=== PATIENT | male | born 1955 | race American Indian/Alaskan Native ===

== ENCOUNTER 2016-09-08 11:52 | Inpatient (IN) | payer BC, OTHER ==
--- NOTE | 2016-09-08 13:09 | C.PDOC ---
History Of Present Illness 61 yo male, hx of htn, dm, presents with "dizziness" x 1 week. pt states difficulty ambulating. pt states also "trouble moving his bowels". and mild abdominal pain pt states no fevers, no cough, no cp, no sob. no n/v/d. Time Seen by Provider: 09/08/16 13:01 Chief Complaint (Nursing): Abdominal Pain Past Medical History Reviewed: Historical Data, Nursing Documentation, Vital Signs Vital Signs: Last Vital Signs Temp 98.1 F 09/08/16 21:04 Pulse 71 09/08/16 21:04 Resp 20 09/08/16 21:04 BP 151/92 H 09/08/16 21:04 Pulse Ox 100 09/08/16 23:40 - Medical History PMH: Diabetes, HTN - [facility] Procedures INJECT INTO THORAX CAVIT (07/21/12) INSERT INDWELLING CATH (07/21/12) INSERT INTERCOSTAL CATH (07/21/12) NON-OP REPLACEMENT NEC (07/21/12) THORACOSCOPIC DRAINAGE OF PLEURAL CAVITY (07/21/12) THORACOSCOPIC EXCISION OF LESION OR TISSUE OF LUNG (07/21/12) Family History: States: Unknown Family Hx - Social History Hx Tobacco Use: No Hx Alcohol Use: No Hx Substance Use: No Review Of Systems Except As Marked, All Systems Reviewed And Found Negative. Constitutional: Positive for: Weakness Gastrointestinal: Positive for: Constipation Physical Exam - Physical Exam Appears: Well, No Acute Distress Skin: Normal Color, Warm, Dry Eye(s): bilateral: Normal Inspection, PERRL, EOMI Nose: Normal Throat: Normal Neck: Normal Cardiovascular: Rhythm Regular Respiratory: Normal Breath Sounds Gastrointestinal/Abdominal: Normal Exam, Soft, No Tenderness, No Guarding, No Rebound Back: Normal Inspection Extremity: Normal ROM Neurological/Psych: Oriented x3, Normal Speech, Normal Cognition, Normal Cranial Nerves, No Cerebellar Signs, Normal Motor, Normal Sensation ED Course And Treatment - Laboratory Results Result Diagrams: 09/08/16 13:58 09/08/16 13:58 O2 Sat by Pulse Oximetry: 100 NIHSS Stroke Scale - Date/Time Evaluation Performed Date Performed: 09/08/16 Time Performed: 16:05 - How Severe is the Stoke Level of Consciousness: 0=Alert LOC to Questions: 0=Both comments correct LOC to commands: 0=Obeys both correctly Best Gaze: 0=Normal Visual: 0=No visual loss Facial: 0=Normal Motor Arm - Left: 0=No drift Motor Arm - Right: 0=No drift Motor Leg - Left: 0=No drift Motor Leg - Right: 0=No drift Limb Ataxia: 0=Absent Sensory: 0=Normal Best Language: 0=No aphasia Dysarthia: 0=Normal articulation Extinction & Inattention (Neglect): 0=Normal, no object Score: 0 Severity Of Stroke: 0= No Stroke rTPA Inclusion/Exclusion - Refusal of Treatment Patient Refused Treatment: No - Inclusion Criteria for Altepase Patient is 18 years or Older: Yes Clinical DX Ischemic Stroke Cause Neurological Deficit: No Time of Onset Established Less Than 270 Mins Before TX Begin: No Risk/Benefit Discussed With Patient/Family Member Present: Yes Medical Decision Making Medical Decision Making: r/o cva/abdominal pathology labs imagoiing pending- ekg nsr [address] t wave changes normal intervals. pt reassesed: head ct shows possible lesion to cerebellum. abd pelvis ct shows kidney stone. noted increaed cr from baseline. case discussed with dr ballard. accepts for admission torr/o cva. also discussed with dr huddleston. agrees to see pt as inpt. Disposition - Disposition Disposition: HOSPITALIZED Disposition Time: 04:00 Condition: STABLE - Clinical Impression Clinical Impression: Dizziness, Stroke, Renal colic, Renal insufficiency Decision To Admit - Pt Status Changed To: Hospital Disposition Of: Inpatient - Admit Certification Admit to Inpatient:: After my assessment, the patient will require hospitalization for at least two midnights. This is because of the severity of symptoms shown, intensity of services needed, and/or the medical risk in this patient being treated as an outpatient. - InPatient: Physician Admission Certification:: pt with r/o cva and infected kidney stone. needs inpt eval. - . Bed Request Type: Telemetry Admitting Physician: Henri Ballard Jr. Patient Diagnosis: Dizziness, Stroke, Renal colic, Renal insufficiency
[2016-09-08 14:02] LABS: BASO # 0.1 K/uL (0.0-0.2); BASO % 1.2 % (0.0-2.0); EOS # 0.3 K/uL (0.0-0.7); EOS % 5.5 % (0.0-4.0); HEMOGLOBIN 14.2 g/dL (12.0-18.0); LYMPH # 1.4 K/uL (1.0-4.3); LYMPH % 25.4 % (20.0-40.0); MEAN CELL VOLUME 86.6 fL (80.0-94.0); MEAN CORPUSCULAR HEMOGLOBIN 29.5 pg (27.0-31.0); MEAN CORPUSCULAR HGB CONC 34.1 g/dL (33.0-37.0); MEAN PLATELET VOLUME 8.9 fL (7.2-11.7); MONO # 0.3 K/uL (0.0-0.8); MONO % 4.6 % (0.0-10.0); NEUT # 3.6 K/uL (1.8-7.0); NEUT % 63.3 % (50.0-75.0); NRBC % 0.1 % (0.0-2.0); RBC 4.83 Mil/uL (4.40-5.90); WHITE BLOOD COUNT 5.7 K/uL (4.8-10.8)
[2016-09-08 14:09] LABS: INR 0.9; PROTHROMBIN TIME 10.4 SECONDS (9.7-12.2)
[2016-09-08 14:11] LABS: ALBUMIN 3.4 g/dL (3.5-5.0)
[2016-09-08 14:14] LABS: GFR AFRICAN-AMERICAN 37; GFR NON-AFRICAN AMERICAN 30
[2016-09-08 14:15] LABS: ALT/SGPT 33 U/L (21-72); AST/SGOT 30 U/L (17-59); BLOOD UREA NITROGEN 36 mg/dL (9-20); CALCIUM 9.2 mg/dl (8.6-10.4); LIPASE 157 U/L (23-300)
[2016-09-08 14:26] LABS: ALB/GLOB RATIO 0.9 (1.0-2.1)
--- NOTE | 2016-09-08 14:45 | RAD ---
HISTORY: chest pain COMPARISON: Chest x-ray performed 07/27/12 TECHNIQUE: Chest, one view. FINDINGS: Examination limited by habitus. LUNGS: No focal consolidation. Please note that chest x-ray has limited sensitivity for the detection of pulmonary masses. PLEURA: No significant pleural effusion identified. No definite pneumothorax . CARDIOVASCULAR: Heart size appears within normal limits. Atherosclerotic calcifications of the aortic knob. OSSEOUS STRUCTURES: Degenerative changes. VISUALIZED UPPER ABDOMEN: Unremarkable. OTHER FINDINGS: None. IMPRESSION: No focal consolidation, significant pleural effusion, or definite pneumothorax identified.
--- NOTE | 2016-09-08 15:55 | CT ---
PROCEDURE: CT HEAD WITHOUT CONTRAST. HISTORY: dizziness COMPARISON: 09/08/2016 TECHNIQUE: Axial computed tomography images were obtained through the head/brain without intravenous contrast. Radiation dose: Total exam DLP = 928 mGy-cm. This CT exam was performed using one or more of the following dose reduction techniques: Automated exposure control, adjustment of the mA and/or kV according to patient size, and/or use of iterative reconstruction technique. FINDINGS: HEMORRHAGE: No intracranial hemorrhage. BRAIN: No mass effect or edema. Scattered focal lucencies in the subcortical and periventricular white matter suggestive for chronic microvascular ischemic change. Focal hypodensity in the right plasencia radiata suggestive for chronic infarct. Small hypodensity in the left basal ganglia suggestive for prominent perivascular space versus chronic lacunar infarct. Bilateral basal ganglia calcifications. Small focal hypodensity seen within the medial inferior left cerebellum on series 4, image 21 which may represent a small chronic infarct. VENTRICLES: Unremarkable. No hydrocephalus. CALVARIUM: Unremarkable. PARANASAL SINUSES: Prominent near complete mucosal opacification of the right maxillary sinus, sphenoid sinus, and ethmoid air cells. MASTOID AIR CELLS: Unremarkable as visualized. No inflammatory changes. OTHER FINDINGS: Intracranial vascular calcifications. IMPRESSION: Chronic microvascular ischemic changes. Probable chronic infarct in the right plasencia radiata. Small focal hypodensity seen within the medial inferior left cerebellum on series 4, image 21 which may represent a small chronic infarct. Probable small left basal ganglia chronic lacunar infarct. Severe sinus mucosal disease. If focal neurologic deficit persists, consider MRI.
[2016-09-08 16:12] LABS: SQUAMOUS EPITHIAL < 1 /hpf (0-5); URINE BILIRUBIN NEGATIVE (NEGATIVE); URINE BLOOD NEGATIVE (NEGATIVE); URINE CLARITY Clear (Clear); URINE COLOR Yellow (YELLOW); URINE GLUCOSE (UA) 3+ mg/dL (Normal); URINE LEUKOCYTE ESTERASE 1+ Leu/uL (Negative); URINE NITRATE NEGATIVE (NEGATIVE); URINE PROTEIN 2+ mg/dL (NEGATIVE); URINE UROBILINOGEN NORMAL mg/dL (0.2-1.0)
--- NOTE | 2016-09-08 16:45 | CT ---
PROCEDURE: CT Abdomen and Pelvis without Oral or IV contrast. HISTORY: abd pain COMPARISON: None available. TECHNIQUE: Contiguous axial images of the abdomen and pelvis. No oral or IV contrast administered. Coronal and Sagittal reformats generated. Radiation dose: Total exam DLP = 434.05 mGy-cm. This CT exam was performed using one or more of the following dose reduction techniques: Automated exposure control, adjustment of the mA and/or kV according to patient size, and/or use of iterative reconstruction technique. FINDINGS: There is limited evaluation of the solid organs without the administration of IV contrast. LOWER THORAX: No visible consolidation, pleural effusion, or pneumothorax. Small hiatal hernia. LIVER: Heterogeneous mostly hypodense 2.2 x 2.1 cm (for example coronal image 58 and axial image 39, 40) lesion possibly within the medial right hepatic lobe however adrenal lesion abutting the hepatic lobe cannot be entirely excluded and is difficult to success on this study. GALLBLADDER AND BILE DUCTS: Gallstones within the gallbladder. PANCREAS: Unremarkable unenhanced appearance. SPLEEN: Unremarkable unenhanced appearance. ADRENALS: The left adrenal gland appears unremarkable. The right adrenal gland is not well visualized and question whether heterogeneous mostly hypodense lesion in the right upper quadrant is in fact originating from the right adrenal gland rather than the liver. KIDNEYS AND URETERS: Severe right-sided hydronephrosis and hydroureter with 7 mm proximal mid ureteral calculus. Correlate clinically. Nonobstructing 10 mm left lower pole calculus. Probable upper pole parapelvic cysts. BLADDER: The urinary bladder appears unremarkable. REPRODUCTIVE: The prostate gland measures approximately 3.1 x 5.3 cm. APPENDIX: The appendix appears within normal limits of caliber. No secondary signs of acute appendicitis. BOWEL: The stomach is nondistended. Lack of oral contrast limits evaluation for bowel pathology. The bowel loops appear within normal limits of caliber without evidence of intestinal obstruction. Moderate constipation. PERITONEUM: No significant free fluid. No definite free air. LYMPH NODES: No bulky lymphadenopathy identified. VASCULATURE: No aortic aneurysm. BONES: Osseous demineralization. Degenerative changes. OTHER FINDINGS: None. IMPRESSION: Cholelithiasis. Severe right-sided hydronephrosis and hydroureter with 7 mm proximal mid ureteral calculus. Correlate clinically. Nonobstructing 10 mm left lower pole calculus. Probable upper pole parapelvic cysts. Heterogeneous mostly hypodense 2.2 x 2.1 cm lesion possibly within the medial right hepatic lobe however adrenal lesion abutting the hepatic lobe cannot be entirely excluded and is difficult to success on this study. Further evaluation may be considered with dedicated cross-sectional imaging. Moderate constipation. Additional findings as above.
[2016-09-08] MEDS ORDERED: cefTRIAXone IV 1 gm in Dextros 50 ML IVPB ONE (17:44)
--- NOTE | 2016-09-08 20:38 | CP.PCM.HP ---
History of Present Illness - History of Present Illness History of Present Illness: CC: Dizziness HPI: Mr Amaya is a 61 yo M who presents to the ED because he' s been experiencing dizziness for the past 1 week which has worsened in the last few days. He says when he feels dizzy he feels as if the room is spinning. He associates the dizziness with walking, and says he also becomes lightheaded when he walks. He says he badly bruised his head (left parietal) on a shelf 2 weeks ago at the [employer] where he works. During this time he also states he's been bringing up yellow phlegm without cough and has been having difficulty moving his bowels. He admits to feeling bloated. He says for the past week his BP has been fluctuating between systolic 120-165. He denies loss of consciousness, headache, vision changes, seizure, fever. PMD: Dr Raines PMHx: HTN, DM, hx of CVA PSHx: Denies Allergies: Metformin - "it makes me nauseous" Medications: Losartan 100mg po daily Glimepiride 4mg po daily Amlodipine 10mg po daily 1 other unknown "BP" medication FamHx: Mother from breast [place] SocialHx: 1.5ppd x 35yrs smoking hx; denies drinking; hx of cocaine and heroin abuse 20 years ago - completed methadone program; lives in [facility] by himself; works in a [employer] Present on Admission - Present on Admission Any Indicators Present on Admission: No Review of Systems - Constitutional Constitutional: absent: Fatigue, Fever, Headache - EENT Eyes: absent: Change in Vision Ears: absent: Ear Pain Nose/Mouth/Throat: Nasal Congestion - Cardiovascular Cardiovascular: Lightheadedness. absent: Chest Pain, Leg Edema, Orthopnea, Palpitations, Pedal Edema - Respiratory Respiratory: Excessive Mucous Production. absent: Cough, Wheezing - Gastrointestinal Gastrointestinal: Bloating, Change in Bowel Habits. absent: Diarrhea - Genitourinary Genitourinary: absent: Change in Urinary Stream, Dysuria, Flank Pain - Musculoskeletal Musculoskeletal: absent: Joint Swelling - Integumentary Integumentary: absent: Bleeding Lesions - Neurological Neurological: Dizziness, Vertigo, Weakness. absent: Confusion, Numbness, Headaches, Syncope - Psychiatric Psychiatric: absent: Behavioral Changes, Confusion Past Patient History - Past Social History Smoking Status: Never Smoked - CARDIAC Hx Hypertension: Yes - PSYCHIATRIC Hx Substance Use: No - ANESTHESIA Hx Anesthesia: No Hx Anesthesia Reactions: No Meds Allergies/Adverse Reactions: Allergies Allergy/AdvReac Type Severity Reaction Status Date / Time No Known Allergies Allergy Verified 09/08/16 11:59 Physical Exam - Head Exam Head Exam: NORMAL INSPECTION Additional comments: bruise on crown of head near left parietal area - Eye Exam Eye Exam: EOMI, PERRL Additional comments: amblyopia of left eye - ENT Exam ENT Exam: Mucous Membranes Moist - Neck Exam Neck exam: Positive for: Full Rom, Normal Inspection - Respiratory Exam Respiratory Exam: Clear to Auscultation Bilateral, NORMAL BREATHING PATTERN. absent: Rales, Rhonchi, Wheezes - Cardiovascular Exam Cardiovascular Exam: REGULAR RHYTHM, RRR, +S1, +S2 - GI/Abdominal Exam GI & Abdominal Exam: Normal Bowel Sounds, Soft. absent: Tenderness - Rectal Exam Rectal Exam: Deferred - Extremities Exam Extremities exam: Negative for: tenderness Additional comments: muscle strength 4/5 in left arm and left leg - Back Exam Back exam: absent: CVA tenderness (L), CVA tenderness (R) - Neurological Exam Neurological exam: Alert, Oriented x3 - Psychiatric Exam Psychiatric exam: Normal Affect, Normal Mood - Skin Skin Exam: Dry, Intact, Normal Color, Warm Results - Vital Signs Recent Vital Signs: Last Vital Signs Temp 97.8 F 09/08/16 20:20 Pulse 77 09/08/16 20:20 Resp 20 09/08/16 20:20 BP 155/86 H 09/08/16 20:20 Pulse Ox 99 09/08/16 20:20 - Labs Result Diagrams: 09/08/16 13:58 09/08/16 13:58 Assessment & Plan (1) Dizziness Assessment and Plan: dizziness for 1 week; hx of CVA Aspirin 81mg po daily venous duplex carotid, f/u Neurology consult, Dr Vipin Nieto, f/u recs 09/08: CT Head: Chronic microvascular ischemic changes. Probable chronic infarct in the right plasencia radiata. Small focal hypodensity seen within the medial inferior left cerebellum on series 4, image 21 which may represent a small chronic infarct. Probable small left basal ganglia chronic lacunar infarct. Severe sinus mucosal disease. If focal neurologic deficit persists, consider MRI. 09/08: CXR: No focal consolidation, significant pleural effusion, or definite pneumothorax. Status: Acute (2) Ureteral calculus Assessment and Plan: No signs/symptoms present on clinical exam 09/08 CT abd/pelvis: Severe right-sided hydronephrosis and hydroureter with 7 mm proximal mid ureteral calculus. Correlate clinically. Nonobstructing 10 mm left lower pole calculus. Probable upper pole parapelvic cysts. Rocephin 1gm IVPB daily Urology consult, Dr Curtis, f/u recs Status: Acute (3) Constipation Assessment and Plan: difficulty having bowel movements for past 1 week colace 100mg po once 09/08: CT abd/pelvis: Moderate constipation. Status: Acute (4) Hypertension Assessment and Plan: con't home meds: Losartan 100mg po daily Amlodipine 10mg po daily Call primary to find out his 3rd BP medicine Status: Acute (5) Diabetes Assessment and Plan: Con't home med: Glimepiride 4mg po daily Status: Acute (6) Prophylactic measure Assessment and Plan: SCD's Heart healthy diet Heparin 5000u sc q8 pepcid 20mg po bid Status: Acute
[2016-09-09 08:24] LABS: BASO % 0.9 % (0.0-2.0); EOS # 0.5 K/uL (0.0-0.7); EOS % 10.6 % (0.0-4.0); HEMOGLOBIN 13.7 g/dL (12.0-18.0); LYMPH # 1.6 K/uL (1.0-4.3); LYMPH % 31.2 % (20.0-40.0); MEAN CELL VOLUME 85.7 fL (80.0-94.0); MEAN CORPUSCULAR HEMOGLOBIN 29.3 pg (27.0-31.0); MEAN CORPUSCULAR HGB CONC 34.2 g/dL (33.0-37.0); MEAN PLATELET VOLUME 8.9 fL (7.2-11.7); MONO # 0.4 K/uL (0.0-0.8); MONO % 7.4 % (0.0-10.0); NEUT # 2.5 K/uL (1.8-7.0); NEUT % 49.9 % (50.0-75.0); RBC 4.67 Mil/uL (4.40-5.90); RED CELL DISTRIBUTION WIDTH 12.8 % (11.5-14.5); WHITE BLOOD COUNT 5.1 K/uL (4.8-10.8)
[2016-09-09 08:42] LABS: ALB/GLOB RATIO 0.9 (1.0-2.1)
[2016-09-09 08:43] LABS: CALCIUM 8.7 mg/dl (8.6-10.4); MAGNESIUM 1.8 mg/dL (1.6-2.3)
--- NOTE | 2016-09-09 08:44 | PCM.URO ---
Urology Progress Note - Objective Lab Results Last 24 Hours: Laboratory Results - last 24 hr 09/09/16 09/09/16 09/09/16 06:08 08:13 08:13 WBC 5.1 RBC 4.67 Hgb 13.7 Hct 40.0 MCV 85.7 MCH 29.3 MCHC 34.2 RDW 12.8 Plt Count 206 MPV 8.9 Neut % (Auto) 49.9 L Lymph % (Auto) 31.2 [place] % (Auto) 7.4 Eos % (Auto) 10.6 H Baso % (Auto) 0.9 Neut # 2.5 Lymph # 1.6 [place] # 0.4 Eos # 0.5 Baso # 0.0 Sodium 134 Potassium 4.3 Chloride 96 L POC Glucose (mg/dL) 169 H Albumin 3.0 L Intake & Output: Intake & Output 09/08/16 09/09/16 09/09/16 18:59 06:59 18:59 Intake Total 120 Balance 120 Intake: Oral 120 Other: # Voids Urine, Voided 2 Vital Signs: Vital Signs - 24 hr 09/08/16 09/08/16 09/08/16 17:35 20:20 21:04 Temperature 97.8 F 97.8 F 98.1 F Pulse Rate 68 77 71 Respiratory 18 20 20 Rate Blood Pressure 156/89 H 155/86 H 151/92 H O2 Sat by Pulse 97 99 99 Oximetry 09/08/16 09/08/16 09/08/16 23:41 23:45 23:49 Temperature 97.6 F Pulse Rate 74 69 Respiratory 20 Rate Blood Pressure 150/91 H O2 Sat by Pulse 100 100 Oximetry 09/09/16 09/09/16 09/09/16 02:00 04:00 04:18 Temperature 98 F 97.4 F L Pulse Rate 68 63 63 Respiratory 20 18 Rate Blood Pressure 161/93 H 145/95 H O2 Sat by Pulse 99 97 Oximetry 09/09/16 09/09/16 06:00 07:00 Temperature 97.5 F L 97.8 F Pulse Rate 67 67 Respiratory 20 20 Rate Blood Pressure 148/92 H 155/96 H O2 Sat by Pulse 98 98 Oximetry
--- NOTE | 2016-09-09 11:07 | CP.PCM.CON ---
History of Present Illness - History of Present Illness History of Present Illness: NEURO CONSULT NOTE: 09/09/16 CHIEF COMPLAINT: DIZZINESS. HPI: MR. MONTE IS A 61 YEAR OLD MAN WITH HISTORY OF HTN, DM2, CVA WHO PRESENTS WITH DIZZINESS IN TERMS OF SPINNING SENSATION OF THE ROOM ESPECIALLY WHEN GETTING FROM SITTING TO STANDING POSITIONS, SUDDEN MOVEMENTS AND WALKING. HE HAS NO FOCAL WEAKNESS IN THE EXTREMITIES. HIS CT HEAD SHOWED NO ACUTE INTRACRANIAL ABNORMALITIES, JUST OLD CHRONIC RIGHT ALTAMIRANO RADIATA, SMALL LEFT MEDIAL CEREBELLUM AND SMALL LEFT BASAL GANGLIA LACUNAR INFARCTS. HE DOES EXPERIENCE BP FLUCTUATIONS. CT abd/pelvis: Severe right-sided hydronephrosis and hydroureter with 7 mm proximal mid ureteral calculus. Correlate clinically. Nonobstructing 10 mm left lower pole calculus which Urology is on board. HE WALKED AROUND THE ROOM WITHOUT DIFFICULTY AND ROMBERG WAS NEGATIVE. ROS: 14 POINT REVIEW OF SYMPTOMS IS NEGATIVE PER HPI. ALLERGIES: NONE SOCIAL HISTORY: NO ILLICIT DRUG USE, SMOKING, OR ETOH USE AT THIS TIME/ FAMILY: NON CONTRIBUTORY. MEDICATIONS: REVIEWED BY NURSE'S RECONCILIATION SHEET. PAST MEDICAL HISTORY: HTN, CVA, HLD, DM2 PHYSICAL EXAM: VITAL SIGNS: REVIEWED BY THE CHART GENERAL EXAM: PATIENT SEEN IN BED, IN NO ACUTE DISTRESS HEENT: PERRLA, EOMI, NECK SUPPLE, NO JVD, NO ADENOPATHY CVS: S1, S2, RRR, NO MURMURS NOTED LUNGS: CLEAR TO AUSCULTATION, NO ADVENTITIOUS SOUNDS ABDOMEN: SOFT AND NONTENDER EXTREMITIES: NO CLUBBING OR CYANOSIS. PP 2+ B/L NEURO: PT IS ALERT AND ORIENTED TO PERSON, PLACE, AND YEAR. , RECALL TO 5 MINUTES 3/3, SPEECH IS FLUENT WITHOUT ERRORS, CN II-XII INTACT, MOTOR EXAM: NORMAL TONE, NORMAL BULK OF MUSCLE, MOVES ALL EXTREMITIES EQUALLY, NO PRONATOR DRIFT SEEN. SENSORY EXAM: DECREASED LIGHT TOUCH, PIN PRICK UP TO CALVES B/L, PROPRIOCEPTION , DECREASED VIBRATION AT THE TOES DEEP TENDON REFLEXES: 2+ THROUGHOUT AND 1 AT THE ANKLES. COORDINATION: FINGER TO NOSE IS INTACT. HEEL TO RING IS INTACT GAIT: WIDE BASED. LABS: REVIEWED BY THE CHART. ASSESSMENT AND PLAN: MR. MONTE IS A 61 YEAR OLD MAN WITH HISTORY OF HTN, DM2, CVA WHO PRESENTS WITH DIZZINESS IN TERMS OF SPINNING SENSATION OF THE ROOM ESPECIALLY WHEN GETTING FROM SITTING TO STANDING POSITIONS, SUDDEN MOVEMENTS AND WALKING. HE HAS NO FOCAL WEAKNESS IN THE EXTREMITIES. HIS CT HEAD SHOWED NO ACUTE INTRACRANIAL ABNORMALITIES, JUST OLD CHRONIC RIGHT ALTAMIRANO RADIATA, SMALL LEFT MEDIAL CEREBELLUM AND SMALL LEFT BASAL GANGLIA LACUNAR INFARCTS. HE DOES EXPERIENCE BP FLUCTUATIONS. CT abd/pelvis: Severe right-sided hydronephrosis and hydroureter with 7 mm proximal mid ureteral calculus. Correlate clinically. Nonobstructing 10 mm left lower pole calculus which Urology is on board. HE WALKED AROUND THE ROOM WITHOUT DIFFICULTY AND ROMBERG WAS NEGATIVE. CAROTID DOPPLER SHOWED MILD DISEASE. IMPRESSION: DIZZINESS IS MORE A POSITIONAL VERTIGO SUPERIMPOSED UNDERLYING HTN AND DIABETIC NEUROPATHY. 1. ASA 81 MG AND WOULD ADD PLAVIX 75 MG FOR STROKE PREVENTION AND GIVEN HIS CT HEAD FINDINGS. 2.OUTPATIENT VESTIBULAR THERAPY FOR VERTIGO. 3. F/U WITH UROLOGY IN REGARDS TO URETERAL CALCULUS. 4. PHYSICAL THERAPY EVALUATION. 5. KEEP SBP BTW 120-130 MMHG AND LOW SALT DIET ADVISED. 6. KEEP BLOOD SUGAR BTW 140-180. THANK YOU. Laurita DASH MD Past Patient History - Past Medical History & Family History Past Medical History?: Yes - Past Social History Smoking Status: Former Smoker - CARDIAC Hx Hypertension: Yes - PULMONARY Hx Respiratory Disorders: Yes Hx Pneumonia: Yes Other/Comment: COLLAPSED LUNG - NEUROLOGICAL Hx Neurological Disorder: Yes HX Cerebrovascular Accident: Yes Hx Dizziness: Yes - HEENT Hx HEENT Problems: Yes Other/Comment: POOR VISION,WEARS GLASSES - RENAL Hx Chronic Kidney Disease: No - ENDOCRINE/METABOLIC Hx Endocrine Disorders: Yes Hx Diabetes Mellitus Type 1: Yes - HEMATOLOGICAL/ONCOLOGICAL Hx Blood Disorders: Yes Hx Hepatitis C: Yes - INTEGUMENTARY Hx Dermatological Problems: No - MUSCULOSKELETAL/RHEUMATOLOGICAL Hx Musculoskeletal Disorders: Yes Hx Falls: No Hx Unsteady Gait: Yes (LEFT SIDED WEAKNESS) - GASTROINTESTINAL Hx Gastrointestinal Disorders: Yes Hx Constipation: Yes - GENITOURINARY/GYNECOLOGICAL Hx Genitourinary Disorders: No - PSYCHIATRIC Hx Substance Use: No - SURGICAL HISTORY Hx Surgeries: Yes Hx Pulmonary Surgery: Yes (?) - ANESTHESIA Hx Anesthesia: No Hx Anesthesia Reactions: No Meds Allergies/Adverse Reactions: Allergies Allergy/AdvReac Type Severity Reaction Status Date / Time No Known Allergies Allergy Verified 09/08/16 11:59 - Medications Medications: Current Medications Amlodipine Besylate (Norvasc) 10 mg PO DAILY [facility] Last Admin: 09/09/16 10:51 Dose: 10 mg Aspirin (Ecotrin) 81 mg PO DAILY [facility] Last Admin: 09/09/16 10:51 Dose: 81 mg Famotidine (Pepcid) 20 mg PO BID [facility] Last Admin: 09/09/16 10:56 Dose: 20 mg Glimepiride (Amaryl) 4 mg PO DAILY [facility] Last Admin: 09/09/16 10:51 Dose: 4 mg Heparin Sodium (Porcine) (Heparin) 5,000 units SC Q8 [facility] Last Admin: 09/09/16 05:59 Dose: 5,000 units Ceftriaxone Sodium 1 gm/ (Sodium Chloride) 100 mls @ 100 mls/hr IVPB DAILY [facility] Last Admin: 09/09/16 10:00 Dose: 100 mls/hr Losartan Potassium (Cozaar) 100 mg PO DAILY [facility] Last Admin: 09/09/16 10:51 Dose: 100 mg Results - Vital Signs Recent Vital Signs: Last Vital Signs Temp 97.8 F 09/09/16 07:00 Pulse 67 09/09/16 07:00 Resp 20 09/09/16 07:00 BP 155/96 H 09/09/16 07:00 Pulse Ox 98 09/09/16 07:00 - Labs Result Diagrams: 09/09/16 08:13 09/09/16 08:13 Labs: Laboratory Results - last 24 hr 09/09/16 09/09/16 09/09/16 06:08 08:13 08:13 WBC 5.1 RBC 4.67 Hgb 13.7 Hct 40.0 MCV 85.7 MCH 29.3 MCHC 34.2 RDW 12.8 Plt Count 206 MPV 8.9 Neut % (Auto) 49.9 L Lymph % (Auto) 31.2 [place] % (Auto) 7.4 Eos % (Auto) 10.6 H Baso % (Auto) 0.9 Neut # 2.5 Lymph # 1.6 [place] # 0.4 Eos # 0.5 Baso # 0.0 Sodium 134 Potassium 4.3 Chloride 96 L Carbon Dioxide 31 H Anion Gap 11 BUN 35 H Creatinine 2.0 H Est GFR ( Amer) 41 Est GFR (Non-Af Amer) 34 POC Glucose (mg/dL) 169 H Random Glucose 142 H Calcium 8.7 Phosphorus 3.8 Magnesium 1.8 Total Bilirubin 0.6 AST 28 ALT 32 Alkaline Phosphatase 84 Total Protein 6.6 Albumin 3.0 L Globulin 3.5 Albumin/Globulin Ratio 0.9 L Triglycerides 99 Cholesterol 147 LDL Cholesterol Direct 56 HDL Cholesterol 48
--- NOTE | 2016-09-09 12:42 | RAD ---
HISTORY: stones COMPARISON: No prior. FINDINGS: BOWEL: Normal gas pattern. 11 mm rounded calculus overlying lower pole left kidney. There is an 8 mm calcification overlying the right iliac wing possibly representing the ureteral calculus seen on CT examination of the prior day. There is an 8 mm calculus in the lower right hemipelvis. It is unclear which if either of these calcifications represents the calcification seen in the right ureter on CT examination. No other abnormal intra-abdominal calcifications are identified. BONES: Normal. OTHER FINDINGS: None. IMPRESSION: 11 mm rounded calcification overlying lower pole left kidney corresponding to renal calculus on CT examination of prior date. 2 8 mm calcifications seen in the right abdomen, 1 overlying the right iliac bone at the level of calcifications seen on CT examination. Second 8 mm calcifications seen in the mid pelvis.
--- NOTE | 2016-09-09 13:18 | US ---
PROCEDURE: Renal ultrasound dated 09/09/2016. HISTORY: Stones. COMPARISON: Comparison made with prior CT scan abdomen and pelvis 09/08/2016. TECHNIQUE: Sonogram of the kidneys. FINDINGS: RIGHT KIDNEY: Right kidney measures approximately 18.1 x 8.7 x 9.6 cm due to significant hydronephrosis. . Note that the possibility of concomitant renal cystic changes not excluded. Previously noted 7 mm calculus within the proximal right ureter on prior CT scan not appreciated on this exam LEFT KIDNEY: Left kidney measures approximately 11.8 x 7.2 x 6.7 cm. Prominent- calices. 10 mm calculus lower pole left kidney again noted. No obvious renal mass or collection. OTHER FINDINGS: Urinary bladder prevoid volume calculated at approximately 808 cc and postvoid at approximately 251 cc IMPRESSION: Severe right-sided hydro nephrosis. 7 mm calculus proximal right ureter not appreciated on this exam. . There is also a 10 mm calculus lower pole left kidney. Note the changes are seen to much better advantage on prior CT scan dated 09/08/2016. Please refer that study for additional details. Significant prevoid urinary bladder volume with moderate significant postvoid residual.
--- NOTE | 2016-09-09 17:14 | CARD ---
APPROVED REPORT EKG Measurement Heart [id number] SD [id number] <Conclusion> Normal sinus rhythm Normal ECG
--- NOTE | 2016-09-09 20:17 | CP.PCM.PN ---
<CatieRoger florentino Isabella - Last Filed: 09/09/16 20:15> Subjective - Date & Time of Evaluation Date of Evaluation: 09/09/16 Time of Evaluation: 15:00 - Subjective Subjective: Patient was seen and examined at bedside. Patient states that he still feels dizzy with a feeling of the room spinning. Laying in bed helps his symptoms. He has no other complaints. He denies chest pain, palpitations, shortness of breath , headache, nausea, fever, vomiting, diarrhea. Objective - Vital Signs/Intake and Output Vital Signs (last 24 hours): Temp Pulse Resp BP Pulse Ox 97.7 F 73 20 149/84 97 09/09/16 15:16 09/09/16 15:16 09/09/16 15:16 09/09/16 15:16 09/09/16 15:16 - Medications Medications: Current Medications Amlodipine Besylate (Norvasc) 10 mg PO DAILY [facility] Last Admin: 09/09/16 10:51 Dose: 10 mg Aspirin (Ecotrin) 81 mg PO DAILY [facility] Last Admin: 09/09/16 10:51 Dose: 81 mg Famotidine (Pepcid) 20 mg PO DAILY [facility] Glimepiride (Amaryl) 4 mg PO DAILY [facility] Last Admin: 09/09/16 10:51 Dose: 4 mg Heparin Sodium (Porcine) (Heparin) 5,000 units SC Q8 [facility] Last Admin: 09/09/16 14:58 Dose: 5,000 units Ceftriaxone Sodium 1 gm/ (Sodium Chloride) 100 mls @ 100 mls/hr IVPB DAILY [facility] Last Admin: 09/09/16 10:00 Dose: 100 mls/hr Losartan Potassium (Cozaar) 100 mg PO DAILY [facility] Last Admin: 09/09/16 10:51 Dose: 100 mg - Labs Labs: 09/09/16 08:13 09/09/16 08:13 PT 10.4 SECONDS (9.7-12.2) 09/08/16 13:58 INR 0.9 09/08/16 13:58 APTT 40 SECONDS (21-34) H 09/08/16 13:58 - Constitutional Appears: Well - Head Exam Head Exam: NORMAL INSPECTION, NORMOCEPHALIC Additional comments: mild bruise on top of head - Eye Exam Eye Exam: EOMI, Normal appearance, PERRL Pupil Exam: NORMAL ACCOMODATION, PERRL - ENT Exam ENT Exam: Mucous Membranes Moist, Normal Exam - Neck Exam Neck Exam: Full ROM, Normal Inspection. absent: Lymphadenopathy - Respiratory Exam Respiratory Exam: Clear to Ausculation Bilateral, NORMAL BREATHING PATTERN - Cardiovascular Exam Cardiovascular Exam: REGULAR RHYTHM, +S1, +S2. absent: Murmur - GI/Abdominal Exam GI & Abdominal Exam: Soft, Normal Bowel Sounds. absent: Tenderness - Rectal Exam Rectal Exam: Deferred - Extremities Exam Extremities Exam: Full ROM, Normal Capillary Refill, Normal Inspection. absent : Joint Swelling, Pedal Edema - Neurological Exam Neurological Exam: Alert, Awake, Oriented x3 - Psychiatric Exam Psychiatric exam: Normal Affect, Normal Mood - Skin Skin Exam: Dry, Intact, Normal Color, Warm Assessment and Plan (1) Dizziness Status: Acute (2) Ureteral calculus Status: Acute (3) Constipation Status: Acute (4) Hypertension Status: Acute (5) Diabetes Status: Acute (6) Prophylactic measure Status: Acute - Assessment and Plan (Free Text) Assessment: (1) Dizziness Assessment and Plan: dizziness for 1 week; hx of CVA 09/09: venous duplex carotid, official report pending 09/09: Patient was seen by Dr Nieto, Neurology: "1. ASA 81 MG AND WOULD ADD PLAVIX 75 MG FOR STROKE PREVENTION AND GIVEN HIS CT HEAD FINDINGS. 2.OUTPATIENT VESTIBULAR THERAPY FOR VERTIGO. 3. F/U WITH UROLOGY IN REGARDS TO URETERAL CALCULUS. 4. PHYSICAL THERAPY EVALUATION. 5. KEEP SBP BTW 120-130 MMHG AND LOW SALT DIET ADVISED. 6. KEEP BLOOD SUGAR BTW 140-180" Aspirin 81mg po daily 09/08: Neurology consult, Dr Vipin Nieto, f/u recs 09/08: CT Head: Chronic microvascular ischemic changes. Probable chronic infarct in the right plasencia radiata. Small focal hypodensity seen within the medial inferior left cerebellum on series 4, image 21 which may represent a small chronic infarct. Probable small left basal ganglia chronic lacunar infarct. Severe sinus mucosal disease. If focal neurologic deficit persists, consider MRI. 09/08: CXR: No focal consolidation, significant pleural effusion, or definite pneumothorax. Status: Acute (2) Ureteral calculus Assessment and Plan: No signs/symptoms present on clinical exam 09/09: patient will follow up urology, Dr Curtis, outpatient regarding his calculi 09/09: Xray Abd: 11 mm rounded calcification overlying lower pole left kidney corresponding to renal calculus on CT examination of prior date. 2 8 mm calcifications seen in the right abdomen, 1 overlying the right iliac bone at the level of calcifications seen on CT examination. Second 8 mm calcifications seen in the mid pelvis. 09/09: Renal Ultrasound: Severe right-sided hydro nephrosis. 7 mm calculus proximal right ureter not appreciated on this exam. . There is also a 10 mm calculus lower pole left kidney. Note the changes are seen to much better advantage on prior CT scan dated 09/08/2016. Please refer that study for additional details. Significant prevoid urinary bladder volume with moderate significant postvoid residual. 09/08 CT abd/pelvis: Severe right-sided hydronephrosis and hydroureter with 7 mm proximal mid ureteral calculus. Correlate clinically. Nonobstructing 10 mm left lower pole calculus. Probable upper pole parapelvic cysts. Rocephin 1gm IVPB daily Urology consult, Dr Curtis, f/u recs Status: Acute (3) Constipation Assessment and Plan: difficulty having bowel movements for past 1 week colace 100mg po once 09/08: CT abd/pelvis: Moderate constipation. Status: Acute (4) Hypertension Assessment and Plan: con't home meds: Losartan 100mg po daily Amlodipine 10mg po daily Call primary to find out his 3rd BP medicine Status: Acute (5) Diabetes Assessment and Plan: Con't home med: Glimepiride 4mg po daily Status: Acute (6) Prophylactic measure Assessment and Plan: SCD's Heart healthy diet Heparin 5000u sc q8 pepcid 20mg po bid Status: Acute <Henri Newman Jr. - Last Filed: 09/13/16 10:40> Objective - Vital Signs/Intake and Output Vital Signs (last 24 hours): Temp Pulse Resp BP Pulse Ox 98.3 F 74 18 151/86 H 96 09/12/16 09:00 09/12/16 09:00 09/12/16 09:00 09/12/16 09:00 09/12/16 09:00 - Labs Labs: 09/12/16 07:14 09/12/16 07:14 PT 10.4 SECONDS (9.7-12.2) 07/06/17 13:58 INR 0.9 09/08/16 13:58 APTT 40 SECONDS (21-34) H 09/08/16 13:58 Attending/Attestation - Attestation I have personally seen and examined this patient.: Yes I have fully participated in the care of the patient.: Yes I have reviewed all pertinent clinical information, including history, physical exam and plan: Yes Notes (Text): 09/13/16 10:40 Agree with resident note and findings
[2016-09-10 06:48] LABS: BASO % 0.9 % (0.0-2.0); EOS # 0.5 K/uL (0.0-0.7); EOS % 9.6 % (0.0-4.0); HEMOGLOBIN 14.4 g/dL (12.0-18.0); LYMPH # 1.5 K/uL (1.0-4.3); LYMPH % 29.9 % (20.0-40.0); MEAN CELL VOLUME 86.3 fL (80.0-94.0); MEAN CORPUSCULAR HEMOGLOBIN 29.5 pg (27.0-31.0); MEAN CORPUSCULAR HGB CONC 34.2 g/dL (33.0-37.0); MEAN PLATELET VOLUME 8.9 fL (7.2-11.7); MONO # 0.4 K/uL (0.0-0.8); MONO % 9.1 % (0.0-10.0); NEUT # 2.5 K/uL (1.8-7.0); NEUT % 50.5 % (50.0-75.0); NRBC % 0.4 % (0.0-2.0); RBC 4.88 Mil/uL (4.40-5.90); RED CELL DISTRIBUTION WIDTH 13.2 % (11.5-14.5); WHITE BLOOD COUNT 4.9 K/uL (4.8-10.8)
[2016-09-10 06:58] LABS: ALBUMIN 3.1 g/dL (3.5-5.0)
[2016-09-10 07:01] LABS: ALB/GLOB RATIO 0.9 (1.0-2.1); CALCIUM 8.7 mg/dl (8.6-10.4); MAGNESIUM 1.9 mg/dL (1.6-2.3)
--- NOTE | 2016-09-10 15:21 | CP.PCM.PN ---
Subjective - Date & Time of Evaluation Date of Evaluation: 09/10/16 Time of Evaluation: 08:00 - Subjective Subjective: PGY1- Medicine Note- Dr. Newmna's Service Patient was seen and examined at bedside. Patient states that he still feels dizzy with a feeling of the room spinning off and on. Laying in bed helps his symptoms. He also has left neck pain and a headache with left eye pain. He denies chest pain, palpitations, shortness of breath, nausea, fever, vomiting, diarrhea. Objective - Vital Signs/Intake and Output Vital Signs (last 24 hours): Temp Pulse Resp BP Pulse Ox 97.9 F 73 20 154/90 H 97 09/10/16 07:00 09/10/16 07:00 09/10/16 07:00 09/10/16 07:00 09/10/16 07:00 Intake and Output: 09/10/16 09/10/16 06:59 18:59 Intake Total 370 Balance 370 - Medications Medications: Current Medications Amlodipine Besylate (Norvasc) 10 mg PO DAILY [facility] Last Admin: 09/10/16 10:26 Dose: 10 mg Aspirin (Ecotrin) 81 mg PO DAILY [facility] Last Admin: 09/10/16 10:25 Dose: 81 mg Clopidogrel Bisulfate (Plavix) 75 mg PO DAILY [facility] Last Admin: 09/10/16 10:25 Dose: 75 mg Diazepam (Valium) 5 mg PO ONCE PRN PRN Reason: Anxiety Famotidine (Pepcid) 20 mg PO DAILY [facility] Last Admin: 09/10/16 10:25 Dose: 20 mg Glimepiride (Amaryl) 4 mg PO DAILY [facility] Last Admin: 09/10/16 10:25 Dose: 4 mg Heparin Sodium (Porcine) (Heparin) 5,000 units SC Q8 [facility] Last Admin: 09/10/16 14:46 Dose: 5,000 units Ceftriaxone Sodium 1 gm/ (Sodium Chloride) 100 mls @ 100 mls/hr IVPB DAILY [facility] Last Admin: 09/10/16 10:26 Dose: 100 mls/hr Losartan Potassium (Cozaar) 100 mg PO DAILY [facility] Last Admin: 09/10/16 10:25 Dose: 100 mg - Labs Labs: 09/10/16 06:33 09/10/16 06:33 PT 10.4 SECONDS (9.7-12.2) 09/08/16 13:58 INR 0.9 09/08/16 13:58 APTT 40 SECONDS (21-34) H 09/08/16 13:58 - Constitutional Appears: Well, Non-toxic, No Acute Distress - Head Exam Head Exam: ATRAUMATIC, NORMAL INSPECTION, NORMOCEPHALIC - Eye Exam Eye Exam: EOMI, Normal appearance, PERRL - ENT Exam ENT Exam: Mucous Membranes Moist, Normal Exam - Neck Exam Neck Exam: Full ROM, Tenderness Additional comments: left sided neck tenderness - Respiratory Exam Respiratory Exam: Clear to Ausculation Bilateral, NORMAL BREATHING PATTERN. absent: Rales, Rhonchi, Wheezes, Respiratory Distress, Stridor - Cardiovascular Exam Cardiovascular Exam: REGULAR RHYTHM, RRR - GI/Abdominal Exam GI & Abdominal Exam: Soft, Normal Bowel Sounds. absent: Distended, Firm, Guarding, Rigid - Extremities Exam Extremities Exam: Full ROM, Normal Inspection - Back Exam Back Exam: NORMAL INSPECTION. absent: rash noted - Neurological Exam Neurological Exam: Alert, Awake, Oriented x3 - Psychiatric Exam Psychiatric exam: Normal Affect, Normal Mood - Skin Skin Exam: Intact, Normal Color, Warm Assessment and Plan - Assessment and Plan (Free Text) Assessment: (1) Dizziness Assessment and Plan: dizziness for 1 week; hx of CVA 09/10: patient to go for MRI head, follow up 09/09: venous duplex carotid, official report pending 09/09: Patient was seen by Dr Nieto, Neurology: "1. ASA 81 MG AND WOULD ADD PLAVIX 75 MG FOR STROKE PREVENTION AND GIVEN HIS CT HEAD FINDINGS. 2.OUTPATIENT VESTIBULAR THERAPY FOR VERTIGO. 3. F/U WITH UROLOGY IN REGARDS TO URETERAL CALCULUS. 4. PHYSICAL THERAPY EVALUATION. 5. KEEP SBP BTW 120-130 MMHG AND LOW SALT DIET ADVISED. 6. KEEP BLOOD SUGAR BTW 140-180" Aspirin 81mg po daily 09/08: Neurology consult, Dr Vipin Nieto, f/u recs 09/08: CT Head: Chronic microvascular ischemic changes. Probable chronic infarct in the right plasencia radiata. Small focal hypodensity seen within the medial inferior left cerebellum on series 4, image 21 which may represent a small chronic infarct. Probable small left basal ganglia chronic lacunar infarct. Severe sinus mucosal disease. If focal neurologic deficit persists, consider MRI. 09/08: CXR: No focal consolidation, significant pleural effusion, or definite pneumothorax. Status: Acute (2) Ureteral calculus Assessment and Plan: No signs/symptoms present on clinical exam 09/09: patient will follow up urology, Dr Curtis, outpatient regarding his calculi 09/09: Xray Abd: 11 mm rounded calcification overlying lower pole left kidney corresponding to renal calculus on CT examination of prior date. 2 8 mm calcifications seen in the right abdomen, 1 overlying the right iliac bone at the level of calcifications seen on CT examination. Second 8 mm calcifications seen in the mid pelvis. 09/09: Renal Ultrasound: Severe right-sided hydro nephrosis. 7 mm calculus proximal right ureter not appreciated on this exam. . There is also a 10 mm calculus lower pole left kidney. Note the changes are seen to much better advantage on prior CT scan dated 09/08/2016. Please refer that study for additional details. Significant prevoid urinary bladder volume with moderate significant postvoid residual. 09/08 CT abd/pelvis: Severe right-sided hydronephrosis and hydroureter with 7 mm proximal mid ureteral calculus. Correlate clinically. Nonobstructing 10 mm left lower pole calculus. Probable upper pole parapelvic cysts. Rocephin 1gm IVPB daily Urology consult, Dr Curtis, f/u recs Status: Acute (3) Constipation Assessment and Plan: difficulty having bowel movements for past 1 week colace 100mg po once 09/08: CT abd/pelvis: Moderate constipation. Status: Acute (4) Hypertension Assessment and Plan: con't home meds: Losartan 100mg po daily Amlodipine 10mg po daily Call primary to find out his 3rd BP medicine Status: Acute (5) Diabetes Assessment and Plan: Con't home med: Glimepiride 4mg po daily Status: Acute (6) Prophylactic measure Assessment and Plan: SCD's Heart healthy diet Heparin 5000u sc q8 pepcid 20mg po bid Status: Acute
--- NOTE | 2016-09-10 17:08 | MRI ---
PROCEDURE: MRI BRAIN WITHOUT CONTRAST HISTORY: dizziness COMPARISON: Comparison made with CT scan of the brain dated 09/08/2016 TECHNIQUE: Multiplanar, multisequence MR images of the brain were obtained without intravenous contrast enhancement. FINDINGS: HEMORRHAGE: No acute parenchymal, subarachnoid or extra-axial hemorrhage. No evidence of hemosiderin deposition identified on gradient echo weighted sequence DWI: No acute or subacute infarct seen on diffusion-weighted imaging. BRAIN PARENCHYMA: No mass effect or edema. No atrophy or chronic microvascular ischemic changes. Moderate to significant confluent chronic white matter ischemic changes with multiple more discrete lacunar-type infarcts scattered about the deep and subcortical white matter as well as both basal nuclei. None of the changes exhibit restricted diffusion. Moderate generalized volume loss. No obvious parenchymal nor extra-axial mass or collection identified on this noncontrast study. VENTRICLES: No evidence of obstructive hydrocephalus. CRANIUM: No gross calvarial abnormalities. ORBITS: Orbits and contents grossly unremarkable. PARANASAL SINUSES/MASTOIDS: Mucosal thickening is seen within the right maxillary,, sphenoid ethmoid and frontal sinuses most pronounced within the sphenoid, right maxillary and ethmoid air complex. Minimal mucosal thickening noted in the left maxillary antrum. . . VASCULAR SYSTEM: Visualized major vascular flow voids at skull base are patent OTHER FINDINGS: None. IMPRESSION: No acute intracranial hemorrhage or infarct. Extensive chronic white matter and lesser bilateral basal nuclei ischemic changes. Moderate generalized volume loss. Mucoperiosteal inflammatory changes within all the paranasal sinuses to varying degrees as above.
[2016-09-11 08:25] LABS: BASO % 0.7 % (0.0-2.0); EOS # 0.4 K/uL (0.0-0.7); EOS % 9.3 % (0.0-4.0); HEMOGLOBIN 14.3 g/dL (12.0-18.0); LYMPH # 1.5 K/uL (1.0-4.3); LYMPH % 30.9 % (20.0-40.0); MEAN CELL VOLUME 86.7 fL (80.0-94.0); MEAN CORPUSCULAR HEMOGLOBIN 29.1 pg (27.0-31.0); MEAN CORPUSCULAR HGB CONC 33.6 g/dL (33.0-37.0); MEAN PLATELET VOLUME 9.5 fL (7.2-11.7); MONO # 0.4 K/uL (0.0-0.8); NEUT # 2.4 K/uL (1.8-7.0); NEUT % 50.1 % (50.0-75.0); NRBC % 0.2 % (0.0-2.0); RBC 4.92 Mil/uL (4.40-5.90); RED CELL DISTRIBUTION WIDTH 12.9 % (11.5-14.5); WHITE BLOOD COUNT 4.8 K/uL (4.8-10.8)
[2016-09-11 08:48] LABS: ALB/GLOB RATIO 0.8 (1.0-2.1)
[2016-09-11 08:49] LABS: CALCIUM 8.8 mg/dl (8.6-10.4)
--- NOTE | 2016-09-11 16:39 | CP.PCM.PN ---
<Domonqiue Dupree - Last Filed: 09/11/16 20:31> Subjective - Date & Time of Evaluation Date of Evaluation: 09/11/16 Time of Evaluation: 08:00 - Subjective Subjective: PGY1- Medicine Note- Dr. Newman's Service Patient seen and examined at bedside. Patient states he does not feel as much dizziness today but feel lightheaded. He denies chest pain, palpitations, shortness of breath, nausea, fever, vomiting, diarrhea. Objective - Vital Signs/Intake and Output Vital Signs (last 24 hours): Temp Pulse Resp BP Pulse Ox 97.2 F L 77 20 153/89 H 98 09/11/16 09:15 09/11/16 09:15 09/11/16 09:15 09/11/16 09:15 09/11/16 09:15 Intake and Output: 09/11/16 09/11/16 06:59 18:59 Intake Total 470 Balance 470 - Medications Medications: Current Medications Amlodipine Besylate (Norvasc) 10 mg PO DAILY [facility] Last Admin: 09/11/16 09:53 Dose: 10 mg Aspirin (Ecotrin) 81 mg PO DAILY [facility] Last Admin: 09/11/16 10:01 Dose: 81 mg Clopidogrel Bisulfate (Plavix) 75 mg PO DAILY [facility] Last Admin: 09/11/16 09:53 Dose: 75 mg Famotidine (Pepcid) 20 mg PO DAILY [facility] Last Admin: 09/11/16 09:53 Dose: 20 mg Glimepiride (Amaryl) 4 mg PO DAILY [facility] Last Admin: 09/11/16 09:55 Dose: 4 mg Heparin Sodium (Porcine) (Heparin) 5,000 units SC Q8 [facility] Last Admin: 09/11/16 13:58 Dose: 5,000 units Ceftriaxone Sodium 1 gm/ (Sodium Chloride) 100 mls @ 100 mls/hr IVPB DAILY [facility] Last Admin: 09/11/16 10:01 Dose: 100 mls/hr Losartan Potassium (Cozaar) 100 mg PO DAILY [facility] Last Admin: 09/11/16 09:53 Dose: 100 mg - Labs Labs: 09/11/16 08:05 09/11/16 08:05 PT 10.4 SECONDS (9.7-12.2) 09/08/16 13:58 INR 0.9 09/08/16 13:58 APTT 40 SECONDS (21-34) H 09/08/16 13:58 - Constitutional Appears: Well, Non-toxic, No Acute Distress - Head Exam Head Exam: ATRAUMATIC, NORMAL INSPECTION, NORMOCEPHALIC - Eye Exam Eye Exam: EOMI, Normal appearance, PERRL - ENT Exam ENT Exam: Mucous Membranes Moist, Normal Exam - Neck Exam Neck Exam: Full ROM, Normal Inspection. absent: Lymphadenopathy - Respiratory Exam Respiratory Exam: Clear to Ausculation Bilateral, NORMAL BREATHING PATTERN. absent: Rales, Rhonchi, Wheezes, Respiratory Distress, Stridor - Cardiovascular Exam Cardiovascular Exam: REGULAR RHYTHM, RRR, +S1, +S2. absent: Gallop, Murmur - GI/Abdominal Exam GI & Abdominal Exam: Soft, Normal Bowel Sounds. absent: Firm, Guarding, Rigid, Tenderness - Extremities Exam Extremities Exam: Full ROM, Normal Capillary Refill, Normal Inspection. absent : Joint Swelling, Pedal Edema - Back Exam Back Exam: NORMAL INSPECTION - Neurological Exam Neurological Exam: Alert, Awake, Oriented x3 - Psychiatric Exam Psychiatric exam: Normal Affect, Normal Mood - Skin Skin Exam: Dry, Normal Color, Warm Assessment and Plan - Assessment and Plan (Free Text) Assessment: (1) Dizziness Assessment and Plan: dizziness for 1 week; hx of CVA 09/10: MRI: no acute intracranial hemorrhage or infarct. extensive chronic white matter and lesser bilateral basal nuclei ischemic changes. Moderate generalized volume loss. Mucoperiosteal inflammatory changes within all the paranasal sinuses to varying degrees. -Claritin 10 mg daily 09/09: venous duplex carotid, official report pending 09/09: Patient was seen by Dr Nieto, Neurology: "1. ASA 81 MG AND WOULD ADD PLAVIX 75 MG FOR STROKE PREVENTION AND GIVEN HIS CT HEAD FINDINGS. 2.OUTPATIENT VESTIBULAR THERAPY FOR VERTIGO. 3. F/U WITH UROLOGY IN REGARDS TO URETERAL CALCULUS. 4. PHYSICAL THERAPY EVALUATION. 5. KEEP SBP BTW 120-130 MMHG AND LOW SALT DIET ADVISED. 6. KEEP BLOOD SUGAR BTW 140-180" Aspirin 81mg po daily 09/08: Neurology consult, Dr Vipin Nieto, f/u recs 09/08: CT Head: Chronic microvascular ischemic changes. Probable chronic infarct in the right plasencia radiata. Small focal hypodensity seen within the medial inferior left cerebellum on series 4, image 21 which may represent a small chronic infarct. Probable small left basal ganglia chronic lacunar infarct. Severe sinus mucosal disease. If focal neurologic deficit persists, consider MRI. 09/08: CXR: No focal consolidation, significant pleural effusion, or definite pneumothorax. Status: Acute (2) Ureteral calculus Assessment and Plan: No signs/symptoms present on clinical exam 09/09: patient will follow up urology, Dr Curtis, outpatient regarding his calculi 09/09: Xray Abd: 11 mm rounded calcification overlying lower pole left kidney corresponding to renal calculus on CT examination of prior date. 2 8 mm calcifications seen in the right abdomen, 1 overlying the right iliac bone at the level of calcifications seen on CT examination. Second 8 mm calcifications seen in the mid pelvis. 09/09: Renal Ultrasound: Severe right-sided hydro nephrosis. 7 mm calculus proximal right ureter not appreciated on this exam. . There is also a 10 mm calculus lower pole left kidney. Note the changes are seen to much better advantage on prior CT scan dated 09/08/2016. Please refer that study for additional details. Significant prevoid urinary bladder volume with moderate significant postvoid residual. 09/08 CT abd/pelvis: Severe right-sided hydronephrosis and hydroureter with 7 mm proximal mid ureteral calculus. Correlate clinically. Nonobstructing 10 mm left lower pole calculus. Probable upper pole parapelvic cysts. Rocephin 1gm IVPB daily Urology consult, Dr Curtis, f/u recs Status: Acute (3) Constipation Assessment and Plan: difficulty having bowel movements for past 1 week colace 100mg po once 09/08: CT abd/pelvis: Moderate constipation. Status: Acute (4) Hypertension Assessment and Plan: con't home meds: Losartan 100mg po daily Amlodipine 10mg po daily Call primary to find out his 3rd BP medicine Status: Acute (5) Diabetes Assessment and Plan: Con't home med: Glimepiride 4mg po daily Status: Acute (6) Prophylactic measure Assessment and Plan: SCD's Heart healthy diet Heparin 5000u sc q8 pepcid 20mg po bid Status: Acute <Henri Newman Jr. - Last Filed: 09/13/16 10:45> Objective - Vital Signs/Intake and Output Vital Signs (last 24 hours): Temp Pulse Resp BP Pulse Ox 98.3 F 74 18 151/86 H 96 09/12/16 09:00 09/12/16 09:00 09/12/16 09:00 09/12/16 09:00 09/12/16 09:00 - Labs Labs: 09/12/16 07:14 09/12/16 07:14 PT 10.4 SECONDS (9.7-12.2) 09/08/16 13:58 INR 0.9 09/08/16 13:58 APTT 40 SECONDS (21-34) H 09/08/16 13:58 Attending/Attestation - Attestation I have personally seen and examined this patient.: Yes I have fully participated in the care of the patient.: Yes I have reviewed all pertinent clinical information, including history, physical exam and plan: Yes Notes (Text): 09/13/16 10:45 Agree with resident note and findings
--- NOTE | 2016-09-12 07:44 | PCM.URO ---
Urology Progress Note - Objective Lab Studies: Reviewed Lab Results Last 24 Hours: Laboratory Results - last 24 hr 09/11/16 09/11/16 09/11/16 08:05 08:05 12:34 WBC 4.8 RBC 4.92 Hgb 14.3 Hct 42.6 MCV 86.7 MCH 29.1 MCHC 33.6 RDW 12.9 Plt Count 189 MPV 9.5 Neut % (Auto) 50.1 Lymph % (Auto) 30.9 [place] % (Auto) 9.0 Eos % (Auto) 9.3 H Baso % (Auto) 0.7 Neut # 2.4 Lymph # 1.5 [place] # 0.4 Eos # 0.4 Baso # 0.0 Sodium 137 Potassium 4.0 Chloride 102 Carbon Dioxide 27 Anion Gap 11 BUN 34 H Creatinine 1.9 H Est GFR ( Amer) 44 Est GFR (Non-Af Amer) 36 POC Glucose (mg/dL) 283 H Random Glucose 119 H Calcium 8.8 Phosphorus 3.9 Magnesium 2.0 Total Bilirubin 0.6 AST 36 ALT 34 Alkaline Phosphatase 81 Total Protein 6.6 Albumin 3.0 L Globulin 3.6 Albumin/Globulin Ratio 0.8 L 09/11/16 09/11/16 09/12/16 17:02 22:10 06:25 WBC RBC Hgb Hct MCV MCH MCHC RDW Plt Count MPV Neut % (Auto) Lymph % (Auto) [place] % (Auto) Eos % (Auto) Baso % (Auto) Neut # Lymph # [place] # Eos # Baso # Sodium Potassium Chloride Carbon Dioxide Anion Gap BUN Creatinine Est GFR ( Amer) Est GFR (Non-Af Amer) POC Glucose (mg/dL) 183 H 253 H 157 H Random Glucose Calcium Phosphorus Magnesium Total Bilirubin AST ALT Alkaline Phosphatase Total Protein Albumin Globulin Albumin/Globulin Ratio Intake & Output: Intake & Output 09/11/16 09/12/16 09/12/16 18:59 06:59 18:59 Intake Total 480 Output Total 100 Balance 380 Intake: Oral 480 Output: Urine 100 Urine, Voided 100 Other: # Voids Urine, Voided 4 # Bowel Movements 1 Vital Signs: Vital Signs - 24 hr 09/11/16 09/11/16 09/11/16 08:00 09:15 15:00 Temperature 97.2 F L 98.1 F Pulse Rate 71 77 74 Respiratory 20 20 Rate Blood Pressure 153/89 H 143/82 O2 Sat by Pulse 98 96 Oximetry 09/11/16 09/11/16 09/12/16 23:45 23:53 04:00 Temperature 98.0 F 97.8 F Pulse Rate 72 73 77 Respiratory 20 20 Rate Blood Pressure 145/87 138/90 O2 Sat by Pulse 97 95 Oximetry Imaging Studies: Reviewed (pt wih bilateral sstone disease)
[2016-09-12 07:57] LABS: BASO % 0.8 % (0.0-2.0); EOS # 0.5 K/uL (0.0-0.7); EOS % 11.1 % (0.0-4.0); HEMOGLOBIN 14.2 g/dL (12.0-18.0); LYMPH # 1.4 K/uL (1.0-4.3); LYMPH % 29.7 % (20.0-40.0); MEAN CORPUSCULAR HEMOGLOBIN 29.3 pg (27.0-31.0); MEAN CORPUSCULAR HGB CONC 33.7 g/dL (33.0-37.0); MEAN PLATELET VOLUME 9.3 fL (7.2-11.7); MONO # 0.4 K/uL (0.0-0.8); NEUT # 2.3 K/uL (1.8-7.0); NEUT % 49.4 % (50.0-75.0); NRBC % 0.2 % (0.0-2.0); RBC 4.82 Mil/uL (4.40-5.90); WHITE BLOOD COUNT 4.7 K/uL (4.8-10.8)
[2016-09-12 08:02] LABS: ALB/GLOB RATIO 0.8 (1.0-2.1)
[2016-09-12 08:03] LABS: CALCIUM 8.9 mg/dl (8.6-10.4)
[2016-09-12 09:01] VITALS: BP 151/86; PULSE 74; RESP 18; TEMP 98.3; O2SAT 96
--- NOTE | 2016-09-12 10:45 | VASCLAB ---
PROCEDURE: HISTORY: hx of cva COMPARISON: None available. TECHNIQUE: Grayscale and duplex Doppler evaluation of the cervical carotid and vertebral arteries were performed. The common carotid, carotid bifurcations and cervical Internal Carotid Artery (ICA) and proximal External Carotid Artery (ECA) were evaluated. The vertebral arteries were evaluated for gross patency and flow direction. Report prepared by Blake Ling, BS, RVT FINDINGS: RIGHT CAROTID ARTERIES: 1. Common Carotid Artery: No significant focal plaque formation of the right common carotid artery. Maximum Peak Systolic velocity: 67 cm/sec: End-diastolic velocity 17 cm/sec. 2. Carotid Bifurcation: plaque formation. Maximum Peak Systolic velocity: 54 cm/sec: End-diastolic velocity 13 cm/sec. 3. Internal Carotid Artery: Plaque description: 3.1. Proximal Segment: Peak systolic velocity 50 cm/sec: End-diastolic velocity 21 cm/sec - % stenosis 0-15% 3.2. Middle Segment: Peak systolic velocity 75 cm/sec: End-diastolic velocity 27 cm/sec - % stenosis 0-15% 3.3. Distal Segment: Peak systolic velocity 81 cm/sec: End-diastolic velocity 30 cm/sec - % stenosis 0-15% 4. External Carotid Artery: No significant focal plaque formation. Peak systolic velocity 74 cm/sec 5. ICA/CCA Ratio: 1.2 LEFT CAROTID ARTERIES: 1. Common Carotid Artery: No significant focal plaque formation of the left common carotid artery. Maximum Peak Systolic velocity: 62 cm/sec: End-diastolic velocity 16 cm/sec. 2. Carotid Bifurcation: plaque formation. Maximum Peak Systolic velocity: 57 cm/sec: End-diastolic velocity 15 cm/sec. 3. Internal Carotid Artery: Plaque description: 3.1. Proximal Segment: Peak systolic velocity 45 cm/sec: End-diastolic velocity 19 cm/sec - % stenosis 0-15% 3.2. Middle Segment: Peak systolic velocity 60 cm/sec: End-diastolic velocity 26 cm/sec - % stenosis 0-15% 3.3. Distal Segment: Peak systolic velocity 87 cm/sec: End-diastolic velocity 34 cm/sec - % stenosis 0-15% 4. External Carotid Artery: No significant focal plaque formation. Peak systolic velocity 75 cm/sec 5. ICA/CCA Ratio: 1.4 VERTEBRAL ARTERIES: 1. Right Vertebral Artery: The right vertebral artery flow direction is antegrade. 2. Left Vertebral Artery: The left vertebral artery flow direction is antegrade. OTHER FINDINGS: 1. Right Brachial Blood pressure: 140 mmHg. 2. Left Brachial Blood pressure: 140 mmHg. IMPRESSION: RIGHT: Duplex scan does not suggest hemodynamically significant stenosis of the right extracranial carotid arteries. LEFT: Duplex scan does not suggest hemodynamically significant stenosis of the left extracranial carotid arteries.
--- NOTE | 2016-09-12 18:30 | CP.PCM.DIS ---
Provider - Provider Date of Admission: 09/08/16 17:02 Attending physician: Henri Newman Jr, MD Consults: Dr. Curtis (urology) Time Spent in preparation of Discharge (in minutes): 45 Diagnosis - Discharge Diagnosis (1) Dizziness Status: Resolved Comment: please see summary for details. (2) Hypertension Status: Acute Comment: please see summary for details. Hospital Course - Lab Results Lab Results: Most Recent Lab Values WBC 4.7 K/uL (4.8-10.8) L 09/12/16 07:14 RBC 4.82 Mil/uL (4.40-5.90) 09/12/16 07:14 Hgb 14.2 g/dL (12.0-18.0) 09/12/16 07:14 Hct 42.0 % (35.0-51.0) 09/12/16 07:14 MCV 87.0 fL (80.0-94.0) 09/12/16 07:14 MCH 29.3 pg (27.0-31.0) 09/12/16 07:14 MCHC 33.7 g/dL (33.0-37.0) 09/12/16 07:14 RDW 13.0 % (11.5-14.5) 09/12/16 07:14 Plt Count 192 K/uL (130-400) 09/12/16 07:14 MPV 9.3 fL (7.2-11.7) 09/12/16 07:14 Neut % (Auto) 49.4 % (50.0-75.0) L 09/12/16 07:14 Lymph % (Auto) 29.7 % (20.0-40.0) 09/12/16 07:14 Ponce % (Auto) 9.0 % (0.0-10.0) 09/12/16 07:14 Eos % (Auto) 11.1 % (0.0-4.0) H 09/12/16 07:14 Baso % (Auto) 0.8 % (0.0-2.0) 09/12/16 07:14 Neut # 2.3 K/uL (1.8-7.0) 09/12/16 07:14 Lymph # 1.4 K/uL (1.0-4.3) 09/12/16 07:14 Ponce # 0.4 K/uL (0.0-0.8) 09/12/16 07:14 Eos # 0.5 K/uL (0.0-0.7) 09/12/16 07:14 Baso # 0.0 K/uL (0.0-0.2) 09/12/16 07:14 PT 10.4 SECONDS (9.7-12.2) 09/08/16 13:58 INR 0.9 09/08/16 13:58 APTT 40 SECONDS (21-34) H 09/08/16 13:58 Sodium 137 mmol/L (132-148) 09/12/16 07:14 Potassium 4.5 mmol/L (3.6-5.2) 09/12/16 07:14 Chloride 103 mmol/L (98-107) 09/12/16 07:14 Carbon Dioxide 29 mmol/L (22-30) 09/12/16 07:14 Anion Gap 10 (10-20) 09/12/16 07:14 BUN 38 mg/dL (9-20) H 09/12/16 07:14 Creatinine 2.3 MG/DL (0.8-1.5) H 09/12/16 07:14 Est GFR ( Amer) 35 09/12/16 07:14 Est GFR (Non-Af Amer) 29 09/12/16 07:14 POC Glucose (mg/dL) 344 mg/dL (65-110) H 09/12/16 11:40 Random Glucose 145 mg/dL (75-110) H 09/12/16 07:14 Calcium 8.9 mg/dl (8.6-10.4) 09/12/16 07:14 Phosphorus 3.7 mg/dL (2.5-4.5) 09/12/16 07:14 Magnesium 2.0 mg/dL (1.6-2.3) 09/12/16 07:14 Total Bilirubin 0.6 mg/dL (0.2-1.3) 09/12/16 07:14 AST 40 U/L (17-59) 09/12/16 07:14 ALT 42 U/L (21-72) 09/12/16 07:14 Alkaline Phosphatase 81 U/L (38-126) 09/12/16 07:14 Total Creatine Kinase 78 U/L (55-170) 09/08/16 13:58 Troponin I < 0.0120 ng/mL (0.00-0.120) 09/08/16 13:58 Total Protein 6.6 g/dL (6.3-8.3) 09/12/16 07:14 Albumin 3.0 g/dL (3.5-5.0) L 09/12/16 07:14 Globulin 3.6 gm/dL (2.2-3.9) 09/12/16 07:14 Albumin/Globulin Ratio 0.8 (1.0-2.1) L 09/12/16 07:14 Triglycerides 99 mg/dL (0-149) 09/09/16 08:13 Cholesterol 147 mg/dL (0-199) 09/09/16 08:13 LDL Cholesterol Direct 56 mg/dL (0-129) 09/09/16 08:13 HDL Cholesterol 48 mg/dL (30-70) 09/09/16 08:13 Lipase 157 U/L (23-300) 09/08/16 13:58 Urine Color Yellow (YELLOW) 09/08/16 16:04 Urine Clarity Clear (Clear) 09/08/16 16:04 Urine pH 6.0 (5.0-8.0) 09/08/16 16:04 Ur Specific Sarah 1.010 (1.003-1.030) 09/08/16 16:04 Urine Protein 2+ mg/dL (NEGATIVE) H 09/08/16 16:04 Urine Glucose (UA) 3+ mg/dL (Normal) H 09/08/16 16:04 Urine Ketones Negative mg/dL (NEGATIVE) 09/08/16 16:04 Urine Blood Negative (NEGATIVE) 09/08/16 16:04 Urine Nitrate Negative (NEGATIVE) 09/08/16 16:04 Urine Bilirubin Negative (NEGATIVE) 09/08/16 16:04 Urine Urobilinogen Normal mg/dL (0.2-1.0) 09/08/16 16:04 Ur Leukocyte Esterase 1+ Rowdy/uL (Negative) H 09/08/16 16:04 Urine WBC (Auto) 22 /hpf (0-5) H 09/08/16 16:04 Urine RBC (Auto) 2 /hpf (0-3) 09/08/16 16:04 Ur Squamous Epith Cells < 1 /hpf (0-5) 09/08/16 16:04 - Hospital Course Hospital Course: CC: Dizziness HPI: Mr Amaya is a 61 yo M who presents to the ED because he' s been experiencing dizziness for the past 1 week which has worsened in the last few days. He says when he feels dizzy he feels as if the room is spinning. He associates the dizziness with walking, and says he also becomes lightheaded when he walks. He says he badly bruised his head (left parietal) on a shelf 2 weeks ago at the [employer] where he works. During this time he also states he's been bringing up yellow phlegm without cough and has been having difficulty moving his bowels. He admits to feeling bloated. He says for the past week his BP has been fluctuating between systolic 120-165. He denies loss of consciousness, headache, vision changes, seizure, fever. On 09/08 CT Head showed chronic microvascular ischemic changes. Probable chronic infarct in the right plasencia radiata. Small focal hypodensity seen within the medial inferior left cerebellum on series 4, image 21 which may represent a small chronic infarct. Probable small left basal ganglia chronic lacunar infarct. Severe sinus mucosal disease. If focal neurologic deficit persists, consider MRI. CXR showed No focal consolidation, significant pleural effusion, or definite pneumothorax.Carotid doppler study was negative. Patient was seen by Dr. Nieto (neuro) who gave aspirin 91 mg and plavix 75 mg for stroke prevention. Recommended vestibular therapy outpatient for vertigo. On 09/10 MRI showed no acute intracranial hemorrhage or infarct. extensive chronic white matter and lesser bilateral basal nuclei ischemic changes. Moderate generalized volume loss. Mucoperiosteal inflammatory changes within all the paranasal sinuses to varying degrees. Patient started on Claritin 10 mg daily. Patient's dizziness much more mild. For the patient's abdominal discomfort on 09/08 CT abd/pelvis showed severe right- sided hydronephrosis and hydroureter with 7 mm proximal mid ureteral calculus. Correlate clinically. Nonobstructing 10 mm left lower pole calculus. Probable upper pole parapelvic cysts. Rocephin 1gm IVPB daily given. 09/09 Xray Abd showed 11 mm rounded calcification overlying lower pole left kidney corresponding to renal calculus on CT examination of prior date. 2 8 mm calcifications seen in the right abdomen, 1 overlying the right iliac bone at the level of calcifications seen on CT examination. Second 8 mm calcifications seen in the mid pelvis. Renal Ultrasound showed severe right-sided hydro nephrosis. 7 mm calculus proximal right ureter not appreciated on this exam. There is also a 10 mm calculus lower pole left kidney. Note the changes are seen to much better advantage on prior CT scan dated 09/08/2016. Please refer that study for additional details. Significant prevoid urinary bladder volume with moderate significant postvoid residual. Patient to follow outpatient with urology for uretral calculus. Patient has no abdominal pain and feels okay. Patient cleared for discharge as per Dr. Newman. This is a summary of the hospital stay. Please check chart for full details. Discharge Exam - Head Exam Head Exam: ATRAUMATIC, NORMAL INSPECTION, NORMOCEPHALIC - Eye Exam Eye Exam: EOMI, Normal appearance, PERRL - ENT Exam ENT Exam: Mucous Membranes Moist - Neck Exam Neck exam: Full Rom, Normal Inspection - Respiratory Exam Respiratory Exam: Clear to PA & Lateral, NORMAL BREATHING PATTERN, UNREMARKABLE. absent: Rales, Rhonchi, Wheezes, Stridor - Cardiovascular Exam Cardiovascular Exam: REGULAR RHYTHM, RRR. absent: Gallop, JVD, Rubs, Systolic Murmur - GI/Abdominal Exam GI & Abdominal Exam: Normal Bowel Sounds. absent: Distended, Firm, Guarding - Extremities Exam Extremities exam: full ROM, normal inspection - Back Exam Back exam: NORMAL INSPECTION. absent: rash noted - Neurological Exam Neurological exam: Alert, Oriented x3 - Psychiatric Exam Psychiatric exam: Normal Affect, Normal Mood - Skin Skin Exam: Intact, Normal Color, Warm Discharge Plan - Discharge Medications Prescriptions: Aspirin [Ecotrin] 81 mg PO DAILY #30 Loratadine [Claritin] 10 mg PO DAILY #30 tab Meclizine [Antivert] 12.5 mg PO Q8H #21 tab - Follow Up Plan Condition: STABLE Disposition: HOME/ ROUTINE Instructions: Aspirin (By mouth), Meclizine (By mouth), Loratadine (By mouth), Kidney Stones (DC), Heart Healthy Diet (DC), Dizziness (GEN) Additional Instructions: Patient stable for discharge as per Dr. Newman. Patient to follow up with primary medical doctor, Dr. Raines within one week of discharge. Patient to follow up with Dr. Curtis (urologist) within one week. Patient to continue home medications as prescribed. Patient to also start taking Aspirin 81 mg once daily and Meclizine 12.5 mg every 8 hours as needed for dizziness. If symptoms worsen or return patient should return to Emergency Room Immediately. Instructions were given to patient who understood and agreed. Referrals: Henri Newman Jr., MD [Medical Doctor] - Tanner Curtis MD [Staff Provider] -
== END 2016-09-12 14:06 | disposition home or self-care (01) | DRG 149 ==
LOC: C.ER 11:52 → C.9E 17:02 → C.6T 20:04
PROVIDERS: ADMIT Internal Medicine; ATTEND Internal Medicine
DX: H81.10 Benign paroxysmal vertigo, unspecified ear (principal); E11.40 Type 2 diabetes mellitus with diabetic neuropathy, unspecified; N13.2 Hydronephrosis with renal and ureteral calculous obstruction; I10 Essential (primary) hypertension; K59.00 Constipation, unspecified; E78.5 Hyperlipidemia, unspecified; Z86.73 Personal history of transient ischemic attack (TIA), and cerebral infarction without residual deficits; Z87.891 Personal history of nicotine dependence

== ENCOUNTER 2017-10-12 08:42 | Emergency (ER) | payer BC ==
[2017-10-12 08:52] VITALS: BMI 21.7
[2017-10-12 08:55] VITALS: O2SAT 98
--- NOTE | 2017-10-12 09:39 | C.PDOC ---
History Of Present Illness 62 y/o male with history of DM and HTN presents to ED with c/o blister to left leg for 2-3 weeks. Patient states 1 week ago blister bursted and now complaints of swelling and pain to area. Patient is compliant with medications for HTN and DM. Patient reports oozing from area and denies fever, chills, numbness or any other complaints at this time. Time Seen by Provider: 10/12/17 09:02 Chief Complaint (Nursing): Lower Extremity Problem/Injury History Per: Patient History/Exam Limitations: no limitations Onset/Duration Of Symptoms: Days Current Symptoms Are (Timing): Still Present Past Medical History Reviewed: Historical Data, Nursing Documentation, Vital Signs Vital Signs: Last Vital Signs Temp 98 F 10/12/17 11:21 Pulse 86 10/12/17 11:21 Resp 18 10/12/17 11:21 BP 126/73 10/12/17 11:21 Pulse Ox 98 10/12/17 11:21 - Medical History PMH: Diabetes, HTN, Pneumonia Surgical History: No Surg Hx - [facility] Procedures INJECT INTO THORAX CAVIT (07/21/12) INSERT INDWELLING CATH (07/21/12) INSERT INTERCOSTAL CATH (07/21/12) NON-OP REPLACEMENT NEC (07/21/12) THORACOSCOPIC DRAINAGE OF PLEURAL CAVITY (07/21/12) THORACOSCOPIC EXCISION OF LESION OR TISSUE OF LUNG (07/21/12) Family History: States: No Known Family Hx - Social History Hx Tobacco Use: No Hx Alcohol Use: No Hx Substance Use: No - Immunization History Hx Tetanus Toxoid Vaccination: No Hx Influenza Vaccination: No Hx Pneumococcal Vaccination: No Review Of Systems Constitutional: Negative for: Fever, Chills Cardiovascular: Negative for: Chest Pain Gastrointestinal: Negative for: Nausea, Vomiting Skin: Positive for: Other (vesicle). Negative for: Rash Neurological: Negative for: Weakness, Numbness Physical Exam - Physical Exam Appears: Non-toxic, No Acute Distress Skin: Warm, Dry, No Rash, Other (5x6cm area of open vesicle to left anterior lower leg. No drainage. Small vesicles scattered along leg) Head: Atraumatic, Normacephalic Eye(s): bilateral: Normal Inspection Oral Mucosa: Moist Neck: Supple Cardiovascular: Rhythm Regular Respiratory: Normal Breath Sounds, No Rales, No Rhonchi, No Wheezing Gastrointestinal/Abdominal: Soft, No Tenderness, No Guarding, No Rebound Extremity: Tenderness (to left lower leg), No Pedal Edema, Capillary Refill (<2 seconds), Swelling Pulses: Left Dorsalis Pedis: Normal Neurological/Psych: Oriented x3, Normal Speech, Normal Cognition, Normal Motor, Normal Sensation Gait: Steady ED Course And Treatment - Laboratory Results Result Diagrams: 10/12/17 09:46 10/12/17 09:46 O2 Sat by Pulse Oximetry: 98 (RA) Pulse Ox Interpretation: Normal Progress Note: Wound was debrided and cleansed with sterile saline. Bacitracin and sterile dressing applied by nurse. Disposition - Disposition Referrals: Amaris Raines MD [Medical Doctor] - Disposition: HOME/ ROUTINE Disposition Time: 10:56 Condition: STABLE Additional Instructions: wash the wound twice a day and then apply bacitracin and bandage. Follow up with your PMD within 2-3 days for wound check. Return if worsened. Prescriptions: Bacitracin Ointment [Bacitracin] 30 gm TOP BID #1 tube Cephalexin [Keflex] 1,000 mg PO BID #40 capsule Ibuprofen [Motrin] 1 tab PO TID PRN #30 tab PRN Reason: Pain Instructions: Bullous Pemphigoid Forms: [employer] (Finnish) - POA Present On Arrival: None - Clinical Impression Clinical Impression: Bullous pemphigoid, Cellulitis - PA / TECHNOLOGY SPECIALIST / Resident Statement MD/DO has reviewed & agrees with the documentation as recorded. - Scribe Statement The provider has reviewed the documentation as recorded by the Julia Lynch All medical record entries made by the Julia were at my direction and personally dictated by me. I have reviewed the chart and agree that the record accurately reflects my personal performance of the history, physical exam, medical decision making, and the department course for this patient. I have also personally directed, reviewed, and agree with the discharge instructions and disposition.
[2017-10-12 09:52] LABS: BASO % 0.8 % (0.0-2.0); EOS # 0.2 K/uL (0.0-0.7); EOS % 3.5 % (0.0-4.0); HEMOGLOBIN 12.6 g/dL (12.0-18.0); LYMPH # 1.2 K/uL (1.0-4.3); LYMPH % 20.1 % (20.0-40.0); MEAN CELL VOLUME 86.7 fL (80.0-94.0); MEAN CORPUSCULAR HEMOGLOBIN 29.7 pg (27.0-31.0); MEAN CORPUSCULAR HGB CONC 34.3 g/dL (33.0-37.0); MEAN PLATELET VOLUME 8.7 fL (7.2-11.7); MONO # 0.5 K/uL (0.0-0.8); MONO % 8.7 % (0.0-10.0); NEUT # 4.1 K/uL (1.8-7.0); NEUT % 66.9 % (50.0-75.0); RBC 4.23 Mil/uL (4.40-5.90); RED CELL DISTRIBUTION WIDTH 13.2 % (11.5-14.5); WHITE BLOOD COUNT 6.1 K/uL (4.8-10.8)
[2017-10-12] MEDS ORDERED: Bacitracin 500 Units/gm Oint Foilpak UD TOP ONE (10:03)
[2017-10-12 10:08] LABS: ALB/GLOB RATIO 1.1 (1.0-2.1); ALBUMIN 3.6 g/dL (3.5-5.0); CALCIUM 8.5 mg/dl (8.6-10.4)
[2017-10-12] MEDS ORDERED: Bacitracin 500 Units/gm Oint Foilpak UD ONE (10:40)
[2017-10-12 11:22] VITALS: BP 126/73; PULSE 86; RESP 18; TEMP 98
== END 2017-10-12 11:22 | disposition home or self-care (01) ==
LOC: C.ER 08:42
DX: L12.0 Bullous pemphigoid (principal); L03.116 Cellulitis of left lower limb

== ENCOUNTER 2017-10-28 16:57 | Emergency (ER) | payer BC ==
[2017-10-28 17:06] VITALS: BMI 22.3
[2017-10-28 17:07] VITALS: RESP 18
--- NOTE | 2017-10-28 17:28 | C.PDOC ---
History Of Present Illness <Iveth Omer - Last Filed: 10/28/17 18:46> <DaveyAlexys - Last Filed: 10/28/17 19:38> 62-YEAR-OLD MALE PRESENTS TO THE EMERGENCY DEPARTMENT WITH COMPLAINTS OF WORSENING B/L LEG BLISTER X 1 MO. SEEN 10/12 FOR SAME, PS INITIAL WAS ON L LEG BUT SINCE THEN PERSIST BLISTERS. history of DM and HTN. "I GET THIS EVERY SUMMER ". PS COMPLETED KEFLEX. DENIES INCR LEG SWELLING, HO "BAD CIRCULATION". NO FEVER EXAM NONTOXIC SKIN LOWER LEGS CHRONIC SKIN CHANGES, +CLEAR BLISTERS, SEVER DEHISC BLISTERS NO PURULENT DC. NO ERYTHEMA EXT ATRAUM, NO EDEMA MDM PS DOES NOT WISH ADMISSION UNDER ANY CIRCUMSTANCES @ THIS TIME. WILL CHECK FS, PODIATRY EVAL (Iveth Omer) History Per: Patient History/Exam Limitations: no limitations Current Symptoms Are (Timing): Still Present <Iveth Omer - Last Filed: 10/28/17 18:46> <Alexys Mariscal - Last Filed: 10/28/17 19:38> Time Seen by Provider: 10/28/17 17:19 Chief Complaint (Nursing): Abnormal Skin Integrity Past Medical History Reviewed: Historical Data, Nursing Documentation, Vital Signs - Medical History PMH: Diabetes, HTN, Pneumonia Denies: Chronic Kidney Disease Family History: States: No Known Family Hx - Social History Hx Tobacco Use: No Hx Alcohol Use: No Hx Substance Use: No - Immunization History Hx Tetanus Toxoid Vaccination: No Hx Influenza Vaccination: No Hx Pneumococcal Vaccination: No <Iveth Omer - Last Filed: 10/28/17 18:46> Vital Signs: Last Vital Signs Temp 97.9 F 10/28/17 19:04 Pulse 80 10/28/17 19:04 Resp 18 10/28/17 19:04 BP 170/90 H 10/28/17 19:04 Pulse Ox 96 10/28/17 19:04 - [facility] Procedures INJECT INTO THORAX CAVIT (07/21/12) INSERT INDWELLING CATH (07/21/12) INSERT INTERCOSTAL CATH (07/21/12) NON-OP REPLACEMENT NEC (07/21/12) THORACOSCOPIC DRAINAGE OF PLEURAL CAVITY (07/21/12) THORACOSCOPIC EXCISION OF LESION OR TISSUE OF LUNG (07/21/12) Review Of Systems Constitutional: Negative for: Fever, Chills Respiratory: Negative for: Shortness of Breath Gastrointestinal: Negative for: Nausea, Vomiting Skin: Positive for: Other (blisters L leg). Negative for: Rash <Iveth Omer - Last Filed: 10/28/17 18:46> Physical Exam - Physical Exam Appears: Non-toxic, No Acute Distress Skin: Warm, Dry, No Rash, Other ( LOWER LEGS CHRONIC SKIN CHANGES, +CLEAR BLISTERS, SEVER DEHISC BLISTERS NO PURULENT DC. NO ERYTHEMA) Head: Atraumatic, Normacephalic Eye(s): bilateral: Normal Inspection Nose: Normal Oral Mucosa: Moist Lips: Normal Appearing Neck: Normal ROM Cardiovascular: Rhythm Regular, No Murmur Respiratory: Normal Breath Sounds, No Accessory Muscle Use Gastrointestinal/Abdominal: Soft, No Tenderness Extremity: Normal ROM, No Deformity, No Swelling Neurological/Psych: Oriented x3, Normal Speech <Iveth Omer - Last Filed: 10/28/17 18:46> ED Course And Treatment - Laboratory Results Result Diagrams: 10/28/17 17:53 Lab Interpretation: No Changes Compared To Prior Results O2 Sat by Pulse Oximetry: 98 Pulse Ox Interpretation: Normal (RA) - Other Rad B/L TIB FIB X-Ray: Interpreted by Me (neg) <Iveth Omer - Last Filed: 10/28/17 18:46> - Laboratory Results Result Diagrams: 10/28/17 17:53 Pulse Ox Interpretation: Normal Progress Note: pt was seen by podiatry resident and pressure dressing applied. Will follow up in clinic <Alexys Mariscal - Last Filed: 10/28/17 19:38> Progress - Data Reviewed Data Reviewed: Lab, Diagnostic imaging, Old records <Iveth Omer - Last Filed: 10/28/17 18:46> <Alexys Mariscal - Last Filed: 10/28/17 19:38> - Re-Evaluation Re-evaluation Note: 10/28/17 17:26 d/w podiatry resident will eval in er 10/28/17 18:08 PER POD RESIDENT, REQUESTING B/L TIB FIB XRAY. NO HO TRAUMA. 10/28/17 18:32 DRESSING APPLIED BY PODIATRY. FU POD CLINIC (Iveth Omer) Medical Decision Making <Iveth Omer - Last Filed: 10/28/17 18:46> <Alexys Mariscal - Last Filed: 10/28/17 19:38> Medical Decision Making: MDM PS DOES NOT WISH ADMISSION UNDER ANY CIRCUMSTANCES @ THIS TIME. WILL CHECK FS, PODIATRY EVAL (Iveth Omer) Disposition Counseled Patient/Family Regarding: Studies Performed, Diagnosis, Need For Followup - Disposition Disposition Time: 19:00 <Iveth Omer - Last Filed: 10/28/17 18:46> <Alexys Mariscal - Last Filed: 10/28/17 19:38> - Disposition Referrals: Alexey Blackwell MD [Staff Provider] - [facility] [Outside] [facility] [Outside] Disposition: HOME/ ROUTINE Condition: FAIR Additional Instructions: WOUND CARE ADVISED BY PODIATRY. FOLLOW UP PODIATRY CLINIC Forms: [employer] (Latvian), General Discharge Instructions - Clinical Impression Clinical Impression: Venous stasis dermatitis, Blister of leg without infection - Scribe Statement The provider has reviewed the documentation as recorded by the Scribe (Alfie Oliver) <Iveth Omer - Last Filed: 10/28/17 18:46> <Alexys Mariscal - Last Filed: 10/28/17 19:38> - Scribe Statement Provider Attestation: All medical record entries made by the Scribe were at my direction and personally dictated by me. I have reviewed the chart and agree that the record accurately reflects my personal performance of the history, physical exam, medical decision making, and the department course for this patient. I have also personally directed, reviewed, and agree with the discharge instructions and disposition. (Iveth Omer) Physician Patient Turnover Patient Signed Over To: Alexys Mariscal Handoff Comments: FU PODIATRY, DISPO <Iveth Omer - Last Filed: 10/28/17 18:46>
[2017-10-28 17:59] LABS: BASO # 0.1 K/uL (0.0-0.2); BASO % 1.1 % (0.0-2.0); EOS # 0.3 K/uL (0.0-0.7); EOS % 5.4 % (0.0-4.0); HEMOGLOBIN 12.2 g/dL (12.0-18.0); LYMPH # 1.5 K/uL (1.0-4.3); LYMPH % 26.6 % (20.0-40.0); MEAN CELL VOLUME 85.9 fL (80.0-94.0); MEAN CORPUSCULAR HEMOGLOBIN 29.4 pg (27.0-31.0); MEAN CORPUSCULAR HGB CONC 34.2 g/dL (33.0-37.0); MEAN PLATELET VOLUME 8.7 fL (7.2-11.7); MONO # 0.5 K/uL (0.0-0.8); MONO % 9.1 % (0.0-10.0); NEUT # 3.2 K/uL (1.8-7.0); NEUT % 57.8 % (50.0-75.0); RBC 4.15 Mil/uL (4.40-5.90); RED CELL DISTRIBUTION WIDTH 13.4 % (11.5-14.5); WHITE BLOOD COUNT 5.6 K/uL (4.8-10.8)
--- NOTE | 2017-10-28 18:36 | CP.PCM.CON ---
History of Present Illness - History of Present Illness History of Present Illness: Podiatry consult notes for attending Dr. Blackwell 62 y/O M patient with PMH of DM, HTN, Cardiac problems seenand evaluated in the ED for b/l leg blisters and burning pain. Patient states that 3 weeks ago he started to develop blisters in both legs. Patient states that the plisters are not painful but when it breaks down it give him burning sensation. Patient states that he came to the ED 3 weeks ago where he was prescribed keflex antibiotic. he states that he finished it but his legs didn't improve. Patient denies having itchy sensation in his legs. Patient denies any other pedal complaint at this time. He denies any recent F/N/V/C/or SOB. PMH: DM, HTN, Cardiac problems. PSH: None Allergies: Metformin Social Hx: Ex-smoker stopped 8 years ago, used to smoke 1 ppd, Denies drinking ETOH or illicit drug use. Review of Systems - Review of Systems Review of Systems: As per HPI Past Patient History - Past Medical History & Family History Past Medical History?: Yes - Past Social History Smoking Status: Former Smoker - CARDIAC Hx Hypertension: Yes - PULMONARY Hx Pneumonia: Yes - NEUROLOGICAL HX Cerebrovascular Accident: Yes - HEENT Hx HEENT Problems: Yes Other/Comment: POOR VISION,WEARS GLASSES - RENAL Hx Chronic Kidney Disease: No - ENDOCRINE/METABOLIC Hx Diabetes Mellitus Type 1: Yes - HEMATOLOGICAL/ONCOLOGICAL Hx Blood Disorders: Yes Hx Hepatitis C: Yes - INTEGUMENTARY Hx Dermatological Problems: No - MUSCULOSKELETAL/RHEUMATOLOGICAL Hx Musculoskeletal Disorders: Yes Hx Falls: No Hx Unsteady Gait: Yes (LEFT SIDED WEAKNESS) - GASTROINTESTINAL Hx Gastrointestinal Disorders: Yes Hx Constipation: Yes - GENITOURINARY/GYNECOLOGICAL Hx Genitourinary Disorders: No - PSYCHIATRIC Hx Substance Use: No - SURGICAL HISTORY Hx Surgeries: Yes Hx Pulmonary Surgery: Yes (?) - ANESTHESIA Hx Anesthesia: No Hx Anesthesia Reactions: No Meds Home Medications: Home Medication List Medication Instructions Recorded Confirmed Type Desoximetasone 0.05% [Topicort LP 1 ea EXT BID #1 tube 10/28/17 Rx 0.05%] RX: Silver Sulfadiazine 1% 20 gm 1 ea EXT BID 20 Days #1 tube 10/28/17 Rx [Silvadene 1% 20 gm] Allergies/Adverse Reactions: Allergies Allergy/AdvReac Type Severity Reaction Status Date / Time No Known Allergies Allergy Verified 10/28/17 17:05 Physical Exam - Constitutional Appears: Well, Non-toxic, No Acute Distress - Head Exam Head Exam: ATRAUMATIC, NORMOCEPHALIC - Extremities Exam Additional comments: LE focused exam: Vasc: DP/PT 2/4 b/l. Cap refill < 3 sec in all digits, Temp gradient warm to cool b/l. +1 Pitting edema noted b/l extending in both legs from the ankle up to below the tibial tuberosity. Neuro: Protective and gross sensation diminished. Derm: +1 Pitting edema noted b/l extending in both legs from the ankle up to below the tibial tuberosity. slight erythema with color change and hyperpigmentation noted in both legs. Skin tension lines are prominent indicating decreased edema. Multiple bullae filled with clear serous fluids noted b/l the biggest is about 2X1 cm. Multiple ruptured bullae with wheeping of clear serous fluid. Multiple patches of hypepigmentation noted among the hyperpigmented area. MSK: Muscle powrer intact 5/5 in all groups. Diffuse arthritic changes in all the foot and ankle major joints b/l. No pain on palpating the ruptured bullae sites. - Neurological Exam Neurological exam: Alert, Oriented x3 - Psychiatric Exam Psychiatric exam: Normal Affect, Normal Mood Results - Vital Signs Recent Vital Signs: Last Vital Signs Temp 98.7 F 10/28/17 17:10 Pulse 78 10/28/17 17:10 Resp 18 10/28/17 17:10 BP 156/90 H 10/28/17 17:10 Pulse Ox 98 10/28/17 18:08 - Labs Result Diagrams: 10/28/17 17:53 Labs: Laboratory Results - last 24 hr 10/28/17 17:53 WBC 5.6 RBC 4.15 L Hgb 12.2 Hct 35.6 MCV 85.9 MCH 29.4 MCHC 34.2 RDW 13.4 Plt Count 161 MPV 8.7 Neut % (Auto) 57.8 Lymph % (Auto) 26.6 [place] % (Auto) 9.1 Eos % (Auto) 5.4 H Baso % (Auto) 1.1 Neut # (Auto) 3.2 Lymph # (Auto) 1.5 [place] # (Auto) 0.5 Eos # (Auto) 0.3 Baso # (Auto) 0.1 Assessment & Plan - Assessment and Plan (Free Text) Assessment: 62 y/o M patient seen and evaluated in the ED for multiple skin blisters at the legs b/l with burning pain and b/l LE edema. Plan: Patient seen and evaluated in the ED Plan discussed in details with attending Dr. Blackwell. Chart, Labs and vitals reviewed; Afebrile, no leukocytosis Discussed with the patient theat his problem might be from bad venous circulation. X-ray reviewed; Soft tissue swelling, no signs of osteomyelitis. Compression dressing applied b/l using ABD, 4X4 gauze and carley bandage. Patient instructed to keep his leg elevated. RX; Topicort cream 0.05% PID topical to be applied for the next 5 days prescribed by the ED doctor. Rx; SSD cream BID topical prescribed by the ED doctor. Patient expressed verbal understanding. Patient to F/U in the podiatry clinic at [facility]. - Date & Time Date: 10/28/17 Time: 19:40
[2017-10-28 19:48] VITALS: BP 169/93; PULSE 85; TEMP 98.6; O2SAT 97
--- NOTE | 2017-10-29 09:09 | RAD ---
Date of service: 10/28/2017 PROCEDURE: Radiographs of the bilateral Tibiae and Fibulae. HISTORY: LEG BLISTERS COMPARISON: None available. TECHNIQUE: Frontal and lateral views obtained. FINDINGS: BONES: RIGHT TIBIA: No fracture or destructive lesion. No periosteal reaction identified. LEFT TIBIA: No fracture or destructive lesion. No periosteal reaction identified. JOINT SPACES: RIGHT TIBIA: Normal. LEFT TIBIA: Normal. SOFT TISSUES: The sella as pattern diffuse dermal and subcutaneous reticulation is identified bilaterally with vascular calcifications infrequently scattered. OTHER FINDINGS: None. IMPRESSION: No destructive bony lesion or periosteal reaction identified at the bilateral fibulae or tibiae. No overt osteomyelitis pattern. Mild diffuse cellulitis in question bilaterally. Further clinical correlation recommended. .
== END 2017-10-28 20:26 | disposition home or self-care (01) ==
LOC: C.ER 16:57
DX: S80.822A Blister (nonthermal), left lower leg, initial encounter (principal); S80.821A Blister (nonthermal), right lower leg, initial encounter; I87.2 Venous insufficiency (chronic) (peripheral); E11.9 Type 2 diabetes mellitus without complications; I10 Essential (primary) hypertension; Z87.891 Personal history of nicotine dependence; Z86.73 Personal history of transient ischemic attack (TIA), and cerebral infarction without residual deficits